=== PATIENT | male | born 1975 | race Caucasian/White ===

== ENCOUNTER 2024-07-26 15:32 | Emergency (ER) | payer OTHER ==
[2024-07-26 15:46] VITALS: BP 121/78; PULSE 61; RESP 18; TEMP 98.9; BMI 26.9
[2024-07-26] MEDS ORDERED: IBUPROFEN 600 MG TABLET (FP) PO ONE (17:05)
[2024-07-26] MEDS ORDERED: LIDOCAINE 4% PATCH TP ONE (17:05)
[2024-07-26] MEDS: LIDOCAINE 5% TOPICAL PATCH TP ONE (17:23)
[2024-07-26] MEDS: IBUPROFEN 600 MG TABLET (FP) PO ONE (17:23)
[2024-07-26] MEDS ORDERED: LIDOCAINE PATCH REMOVAL MC SCH (22:00)
== END 2024-07-26 17:47 | disposition home or self-care (01) ==
LOC: JER 15:32
DX: M54.50 Low back pain, unspecified (principal); X50.0XXA Overexertion from strenuous movement or load, initial encounter; Y99.0 Civilian activity done for income or pay
CPT/HCPCS: 99283-25